=== PATIENT | male | born 1975 | race Caucasian/White ===

== ENCOUNTER 2019-11-28 22:53 | Emergency (ER) | payer BC ==
[~2019-11-28] VITALS: Ht 157.5 cm; Wt 79.4 kg
[2019-11-28 22:53] VITALS: BP_SYST 137
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
--- NOTE | 2019-11-28 23:00 | NUR ---
unable to de-escalate patient, security called [place] . Pt lying on floor of waiting room, kicking at dodd, punching at floor. shouting obscenities at other patients in waiting room. shouting and pacing in waiting room after getting up from floor. pt demanding pain medication.
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
--- NOTE | 2019-11-29 | NUR ---
Miky Bermudez states that the patients care is present in our parking lot. They state that drug paraphenalia and used needles can be seen on floorboard and seat of vehicle. asked that we call them if patient attempts to drive home, as they suspect patient is under the influence.
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
--- NOTE | 2019-11-29 00:15 | NUR ---
ER at chairside attempting to examining patient. pt uncooperative
--- NOTE | 2019-11-29 00:40 | NUR ---
Pt taken to CT for abdominal CT, pt cooperative
[2019-11-29 00:49] LABS: BILIRUBIN,URINE NEGATIVE (NEGATIVE); BLOOD, URINE 3+ (NEGATIVE); CLARITY/URINE CLEAR (CLEAR); COLOR,URINE YELLOW (YELLOW); GLUCOSE,URINE NEGATIVE (NEGATIVE); KETONES,URINE NEGATIVE (NEGATIVE); LEUKOCYTE ESTERASE ,URINE NEGATIVE (NEGATIVE); NITRITE, URINE NEGATIVE (NEGATIVE); PROTEIN URINE NEGATIVE (NEGATIVE); UROBILINOGEN,URINE 0.2 (0.2-1.0)
--- NOTE | 2019-11-29 00:55 | NUR ---
pt returned to lobby after CT
[2019-11-29 01:04] LABS: WBC,URINE 0-3 /HPF (0-3)
[2019-11-29 01:05] LABS: BACTERIA,URINE FEW /HPF (None Seen); METHAMPHETAMINES SCREEN,URINE POSITIVE (NEG <=500)
[2019-11-29 01:06] LABS: BARBITURATE, URINE NEGATIVE (NEG <=200); BENZODIAZEPINE, URINE NEGATIVE (NEG <=150); CANNABINOID, URINE NEGATIVE (NEG <=50); COCAINE, URINE NEGATIVE (NEG <=150); OPIATE, URINE NEGATIVE (NEG <=100); PHENCYCLIDINE SCREEN,URINE NEGATIVE (NEG <=25); UR TRICYCLIC ANTIDEPRESSANTS NEGATIVE (NEG <=300); URINE AMPHETAMINE POSITIVE (NEG <=500); URINE METHADONE NEGATIVE (NEG <=200); URINE OXYCODONE SCREEN NEGATIVE (NEG <=100); URINE PROPOXYPHENE SCREEN NEGATIVE (NEG <=300)
[2019-11-29 01:45] LABS: CALCIUM 8.9 mg/dL (8.4-11.0); CREATININE 1.52 mg/dL (0.55-1.30); POTASSIUM 3.3 mmol/L (3.5-5.1)
[2019-11-29 01:57] LABS: ALBUMIN 3.6 g/dL (3.4-4.8); TOTAL BILIRUBIN 0.4 mg/dL (0.0-1.0)
--- NOTE | 2019-11-29 02:00 | NUR ---
spoke with charge nurse at [facility]. states that patient came into ER at their facility demanding pain medication, was registered approx 2200, placed into a room approx 2220 and eloped at 2230 without recieving evaluation or medications.
[2019-11-29 02:30] LABS: BASOPHILS % (AUTO) 0.3 % (0.0-2.0); EOSINOPHILS % (AUTO) 0.2 % (0.0-4.0); HEMATOCRIT 40.5 % (36-54); HEMOGLOBIN 13.4 g/dL (14.0-18.0); LYMPHOCYTES # (AUTO) 1.1 K/uL (1.0-5.5); LYMPHOCYTES % (AUTO) 8.4 % (20.5-51.5); MEAN CORPUSCULAR HEMOGLOBIN 29 pg (27-31); MEAN CORPUSCULAR HGB CONC 33 % (32-36); MEAN CORPUSCULAR VOLUME 86 fL (79.0-98.0); MONOCYTES # (AUTO) 0.6 K/uL (0.0-1.0); MONOCYTES % (AUTO) 4.8 % (1.7-9.3); NEUTROPHILS # (AUTO) 11.6 K/uL (1.8-7.7); NEUTROPHILS % (AUTO) 86.3 % (40.0-70.0); PLATELET COUNT (AUTO) 256 K/uL (130-430); RED CELL DISTRIBUTION WIDTH 13.8 % (9.0-15.0); WHITE BLOOD COUNT (AUTO) 13.5 K/uL (4.8-10.8)
--- NOTE | 2019-11-29 04:00 | NUR ---
Pt resting in ED waiting room chair. pt in no distress at this time. pt provided with blanket at request. no bed/room avail at this time.
--- NOTE | 2019-11-29 05:15 | NUR ---
Pt resting in ER waiting room chair. no beds currently avail. no distress.
--- NOTE | 2019-11-29 06:05 | NUR ---
Called patient into room with . Patient did not respond. Checked waiting room, outside, bathroom, triage room, patient is no longer on premesis. Patient has eloped.
== END 2019-11-29 06:05 | disposition left against medical advice (07) ==
LOC: SED 22:53
DX: R10.9 Unspecified abdominal pain (principal)
CPT/HCPCS: 36415; 80053; 80307; 81000-TC; 83690-TC; 85025; 99284